=== PATIENT | male | born 1960 | race African-American/Black ===

== ENCOUNTER 2021-01-11 06:12 | Emergency (ER) | payer OTHER ==
[~2021-01-11] VITALS: Ht 167.6 cm; Wt 69.2 kg
[2021-01-11] MEDS ORDERED: SMZ/TMP 800/160MG TABLET. PO ONE (06:45)
[2021-01-11] MEDS ORDERED: CEPHALEXIN 250 MG CAPSULE. PO ONE (06:45)
[2021-01-11] MEDS ORDERED: LIDOCAINE 1% Multi-Dose 20 ML VIAL. INJ ONE (06:45)
--- NOTE | 2021-01-11 06:50 | PHYS DOC ---
Past Medical History Past Medical History: High Cholesterol, Hypertension Past Surgical History: No Surgical History Smoking Status: Never Smoker Alcohol Use: None General Adult EDM: Chief Complaint: ABSCESS HPI: HPI: Patient is a 60 year old male who presented to ER for evaluation of an abscess on his anterior chest wall for a week. Patient has have a bump there for there. He was seen by his PCP and told not to worry about it. About a week ago, the bump became more swollen, red and painful then a few day ago it started draining pus. Patient denies any history of diabetic. He is not up-to-date his tetanus vaccination status. Patient denies any cough or fever.. Patient denies any chest pain or any trouble breathing. Patient has history of hypertension. Patient did not take his morning medication today. Review of Systems: Review of Systems: Constitutional: Denies fever or chills. [] Eyes: Denies change in visual acuity. [] HENT: Denies nasal congestion or sore throat. [] Respiratory: Denies cough or shortness of breath. [] Cardiovascular: Denies chest pain or edema. [] GI: Denies abdominal pain, nausea, vomiting, bloody stools or diarrhea. [] : Denies dysuria. [] Musculoskeletal: Denies back pain or joint pain. [] Integument: Positive for skin abscess Neurologic: Denies headache, focal weakness or sensory changes. [] Endocrine: Denies polyuria or polydipsia. [] Lymphatic: Denies swollen glands. [] Psychiatric: Denies depression or anxiety. [] Heart Score: C/O Chest Pain: N/A Risk Factors: Risk Factors: DM, Current or recent (<one month) smoker, HTN, HLP, family history of CAD, obesity. Risk Scores: Score 0 - 3: 2.5% MACE over next 6 weeks - Discharge Home Score 4 - 6: 20.3% MACE over next 6 weeks - Admit for Clinical Observation Score 7 - 10: 72.7% MACE over next 6 weeks - Early Invasive Strategies Current Medications: Current Medications Medications (Trade) Dose Ordered Sig/Michell Start Time Stop Time Status Last Admin Dose Admin Cephalexin HCl (Keflex) 500 mg 1X ONCE 01/11/21 06:45 01/11/21 06:46 DC Lidocaine HCl (Lidocaine 1% 20ml Vial) 20 ml 1X ONCE 01/11/21 06:45 3/6/21 06:46 DC Trimethoprim/ Sulfamethoxazole (Bactrim Ds) 1 tab 1X ONCE 01/11/21 06:45 01/11/21 06:46 DC Allergies: Allergies: Allergies Coded Allergies Type Severity Reaction Last Updated Verified No Known Drug Allergies 01/11/21 No Physical Exam: PE: Constitutional: Well developed, well nourished, no acute distress, non-toxic appearance. [] HENT: Normocephalic, atraumatic, bilateral external ears normal, oropharynx moist, no oral exudates, nose normal. [] Eyes: PERRLA, EOMI, conjunctiva normal, no discharge. [] Neck: Normal range of motion, no tenderness, supple, no stridor. [] Cardiovascular:Heart rate regular rhythm, no murmur [] Lungs & Thorax: Bilateral breath sounds clear to auscultation [] Abdomen: Bowel sounds normal, soft, no tenderness, no masses, no pulsatile masses. [] Skin: 3.5 cm by 3.5 cm indurated, raised abscess on anterior chest at the mid sternum area, with purulent drainage.[] Back: No tenderness, no CVA tenderness. [] Extremities: No tenderness, no cyanosis, no clubbing, ROM intact, no edema. [] Neurologic: Alert and oriented X 3, normal motor function, normal sensory function, no focal deficits noted. [] Psychologic: Affect normal, judgement normal, mood normal. [] Current Patient Data: Vital Signs: Vital Signs Date Time Temp Pulse Resp B/P (MAP) Pulse Ox O2 Delivery O2 Flow Rate FiO2 01/11/21 06:15 97.8 18 174/89 (117) 98 Room Air 97.8 EKG: EKG: [] Radiology/Procedures: Radiology/Procedures: Indication: abscess Procedure: The patient was positioned appropriately. Local anesthesia was 20 ml 1% lidocaine. An incision was then made over the apex of the lesion and large amount of purulent material was expressed. The drainage cavity was irrigated. The patients tetanus status updated as needed. The patient tolerated the procedure well. Complications: none.[] Course & Med Decision Making: Course & Med Decision Making Pertinent Labs and Imaging studies reviewed. 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 Patient will need to follow-up with his doctor in a couple day for reevaluation. Viry Disclaimer: Viry Disclaimer: This electronic medical record was generated, in whole or in part, using a voice recognition dictation system. Departure Departure Impression: Primary Impression: Skin abscess Disposition: 01 DC HOME SELF CARE/HOMELESS Condition: STABLE Patient Instructions: Abscess, Abscess, Care After Additional Instructions: Thank you for visiting our Emergency Department. We appreciate you trusting us with your care. If any additional problems come up don't hesitate to return to visit us. Please follow up with your primary care provider so they can plan additional care if needed and know about the problem that you had. If symptoms worsen come back to the Emergency Department. Any concerning symptoms that start such as chest pain, shortness of air, weakness or numbness on one side of the body, running high fevers or any other concerning symptoms return to the ER. Scripts Cephalexin (CEPHALEXIN) 500 Mg Tablet 1 TAB PO QID, #40 TAB Prov: VIKTORIYA PIKE DO 01/11/21 Sulfamethoxazole/Trimethoprim (BACTRIM DS TABLET) 1 Each Tablet 1 TAB PO BID for 10 Days, #20 TAB 0 Refills Prov: VIKTORIYA PIKE DO 01/11/21 VIKTORIYA PIKE DO Jan 11, 2021 06:50
[2021-01-11] MEDS ORDERED: DIPH,PERTUSS(ACELL),TET VAC/PF 0.5 ML SYRINGE. VAX IM ONE (08:00)
[2021-01-11 08:30] VITALS: BP 167/78
[2021-01-11] MEDS ORDERED: SULF1TAB24 PO (08:49)
[2021-01-11] MEDS ORDERED: CEPH500T PO (08:49)
== END 2021-01-11 08:56 | disposition home or self-care (01) ==
LOC: ER 06:12
DX: L02.213 Cutaneous abscess of chest wall (principal); I10 Essential (primary) hypertension; E78.00 Pure hypercholesterolemia, unspecified
CPT/HCPCS: 10060; 90471; 90715; 99283; J3490